=== PATIENT | male | born 1975 | race Caucasian/White ===

== ENCOUNTER → 2016-11-08 | Outpatient (CLI) | payer MEDICAID ==
[~2016-11-08] MED LIST: CYMBALTA; DEPO-TESTOS100 MG/ML IM; DIAZEPAM PO; FLEXERIL 1010 MG/TAB PO; KLONOPIN 0.5MG0.5 MG PO; LORTAB 7.5/5001 TAB; OXYCODONE HCL20 MG PO; OXYCONTIN30 MG PO; PERCOCET 5/321 UDTAB PO; PERCOCET 650 MG1 TAB PO; VIIBRYD20 MG PO; ZANTAC; [UNRECOGNIZED DRUG - REMARK]
== END ==
LOC: BHSO 14:53
DX: F06.32 Mood disorder due to known physiological condition with major depressive-like episode (principal)

== ENCOUNTER → 2017-06-21 | Outpatient (CLI) | payer MEDICAID | LOC: BHSO 08:55 | DX: F41.1 Generalized anxiety disorder (principal) ==

== ENCOUNTER → 2017-09-11 | Outpatient (REF) | LOC: ZLAB.WCH 17:30 | DX: Z01.89 Encounter for other specified special examinations (principal) | CPT/HCPCS: G0103 ==

== ENCOUNTER → 2017-12-20 | Outpatient (CLI) | payer MEDICAID | LOC: BHSO 09:00 | DX: F06.32 Mood disorder due to known physiological condition with major depressive-like episode (principal) | CPT/HCPCS: G0463 ==

== ENCOUNTER → 2018-06-27 | Outpatient (CLI) | payer MEDICAID | LOC: BHSO 11:38 | DX: F06.32 Mood disorder due to known physiological condition with major depressive-like episode (principal) | CPT/HCPCS: G0463 ==

== ENCOUNTER → 2018-12-19 | Outpatient (CLI) | payer MEDICAID | LOC: BHSO 11:37 | DX: F41.1 Generalized anxiety disorder (principal) | CPT/HCPCS: G0463 ==

== ENCOUNTER → 2019-07-04 | Outpatient (CLI) | payer MEDICAID | LOC: BHSO 11:40 | DX: F41.1 Generalized anxiety disorder (principal) | CPT/HCPCS: G0463 ==

== ENCOUNTER → 2020-08-06 | Outpatient (CLI) | payer MEDICAID | LOC: BHSO 11:37 | DX: F41.1 Generalized anxiety disorder (principal) | CPT/HCPCS: G0463 ==